=== PATIENT | female | born 1970 | race Caucasian/White ===

== ENCOUNTER 2018-02-23 18:23 | Outpatient (CLI) | payer BC, SELFPAY ==
[2018-02-23 16:45] LABS: RBC 4.96 m/cumm (4.00-5.20); White Blood Cell Count 3.87 k/cumm (4.4-10.8)
[2018-02-23 16:46] LABS: HCT 39.7 % (36.0-46.0); Mean Corpuscular Hemoglobin 26.2 pg (27.0-33.0)
[2018-02-23 16:47] LABS: Abs Immature Grans 0.01 k/cumm (0.0-0.09); Absolute Basophil Count 0.02 k/cumm (0.0-0.2); Absolute Eosinophil Count 0.21 k/cumm (0.0-0.7); Absolute Lymphocyte Count 1.18 k/cumm (1.2-3.4); Absolute Monocyte Count 0.24 k/cumm (0.11-0.7); Absolute Neutrophil Count 2.21 k/cumm (1.2-6.7); Basophils % 0.5; Eosinophils % 5.4; Immature Grans % 0.3; Lymphocytes % 30.5; Mean Corp. HGB Concentration 32.7 g/dL (32.0-36.0); Monocytes % 6.2; Neutrophils % 57.1; Platelet Count 243 x1000/uL (130-400); RBC Distribution Width 13.9 % (11.7-14.6)
[2018-02-23 16:48] LABS: Folate 15.5 ng/mL (8.6-20.0); Vitamin B12 778 pg/mL (193-986)
== END 2018-02-23 18:24 ==
PROVIDERS: PCP Emergency Medicine; Visit Provider Nurse Practitioner Family
DX: B37.0 Candidal stomatitis (principal)
CPT/HCPCS: 82607; 82746; 85025

== ENCOUNTER 2018-05-31 09:03 | Outpatient (CLI) | payer BC, SELFPAY ==
[2018-05-31 12:15] LABS: ALT 37 U/L (12-78); AST 22 U/L (15-37); Albumin 3.7 g/dL (3.4-5.0); Alkaline Phosphatase 114 U/L (46-116); Bilirubin, Direct 0.07 mg/dL (0.00-0.20); Bilirubin, Total 0.3 mg/dL (0.2-1.0); Total Protein 7.2 g/dL (6.4-8.2)
== END 2018-05-31 09:23 ==
PROVIDERS: PCP Emergency Medicine; Visit Provider Emergency Medicine
DX: K76.0 Fatty (change of) liver, not elsewhere classified (principal)
CPT/HCPCS: 36415; 80076

== ENCOUNTER 2019-06-13 07:00 | Outpatient (CLI) | payer BC, SELFPAY ==
[2019-06-13 11:35] LABS: Abs Immature Grans 0.03 k/cumm (0.0-0.09); Absolute Basophil Count 0.04 k/cumm (0.0-0.2); Absolute Eosinophil Count 0.15 k/cumm (0.0-0.7); Absolute Lymphocyte Count 1.49 k/cumm (1.2-3.4); Absolute Monocyte Count 0.43 k/cumm (0.11-0.7); Absolute Neutrophil Count 7.13 k/cumm (1.2-6.7); Basophils % 0.4; Eosinophils % 1.6; HCT 39.9 % (36.0-46.0); HGB 13.1 g/dL (12.0-15.5); Immature Grans % 0.3; Lymphocytes % 16.1; Mean Corp. HGB Concentration 32.8 g/dL (32.0-36.0); Mean Corpuscular Hemoglobin 25.8 pg (27.0-33.0); Mean Corpuscular Volume 78.5 fL (80-95); Mean Platelet Volume 9.4 fL (8.0-11.0); Monocytes % 4.6; Platelet Count 357 x1000/uL (130-400); RBC 5.08 m/cumm (4.00-5.20); RBC Distribution Width 14.4 % (11.7-14.6); White Blood Cell Count 9.27 k/cumm (4.4-10.8)
[2019-06-13 11:46] LABS: ALT 23 U/L (14-59); AST 17 U/L (15-37); Albumin 3.8 g/dL (3.4-5.0); Alkaline Phosphatase 128 U/L (46-116); Anion Gap 10.6 mmol/L (3-11); BUN 11 mg/dL (7-18); Bilirubin, Total 0.2 mg/dL (0.2-1.0); C-Reactive Protein 2.41 mg/dL (0.0-0.3); CO2 29.4 mmol/L (21.0-32.0); Calcium 9.4 mg/dL (8.5-10.1); Chloride 102 mmol/L (98-107); Creatine Kinase 74 U/L (26-192); Glucose 80 mg/dL (74-106); Potassium 4.1 mmol/L (3.5-5.1); Sodium 142 mmol/L (136-145); TSH 2.11 uIU/mL (0.36-3.74); Total Protein 7.6 g/dL (6.4-8.2)
[2019-06-13 12:09] LABS: ESR 56 mm/hr (0-20)
[2019-06-23 09:48] LABS: Lyme Ab w Rflx to Lyme Confirm Positive (Negative)
[2019-06-23 10:04] LABS: IgG Immunoblot Negative (Negative); IgM Immunoblot Negative (Negative)
== END 2019-06-13 07:20 ==
PROVIDERS: PCP Emergency Medicine; Visit Provider Emergency Medicine
DX: E03.9 Hypothyroidism, unspecified (principal); R53.83 Other fatigue; M25.50 Pain in unspecified joint
CPT/HCPCS: 36415; 80053; 82550; 85652; 86617; 84443; 85025; 86140; 86618

== ENCOUNTER 2019-06-21 04:26 | Outpatient (CLI) | payer BC, SELFPAY ==
[2019-06-21 09:48] LABS: Abs Immature Grans 0.01 k/cumm (0.0-0.09); Absolute Basophil Count 0.04 k/cumm (0.0-0.2); Absolute Eosinophil Count 0.19 k/cumm (0.0-0.7); Absolute Lymphocyte Count 1.73 k/cumm (1.2-3.4); Absolute Monocyte Count 0.46 k/cumm (0.11-0.7); Absolute Neutrophil Count 4.87 k/cumm (1.2-6.7); Basophils % 0.5; Eosinophils % 2.6; HCT 39.3 % (36.0-46.0); HGB 12.8 g/dL (12.0-15.5); Immature Grans % 0.1; Lymphocytes % 23.7; Mean Corp. HGB Concentration 32.6 g/dL (32.0-36.0); Mean Corpuscular Hemoglobin 25.3 pg (27.0-33.0); Mean Corpuscular Volume 77.8 fL (80-95); Mean Platelet Volume 9.3 fL (8.0-11.0); Monocytes % 6.3; Neutrophils % 66.8; Platelet Count 344 x1000/uL (130-400); RBC 5.05 m/cumm (4.00-5.20); RBC Distribution Width 14.8 % (11.7-14.6)
[2019-06-21 10:21] LABS: ALT 63 U/L (14-59); AST 38 U/L (15-37); Albumin 3.6 g/dL (3.4-5.0); Alkaline Phosphatase 145 U/L (46-116); Anion Gap 10.8 mmol/L (3-11); BUN 15 mg/dL (7-18); Bilirubin, Total 0.3 mg/dL (0.2-1.0); CO2 28.2 mmol/L (21.0-32.0); CREATININE 0.73 mg/dL (0.55-1.02); Calcium 9.3 mg/dL (8.5-10.1); Chloride 103 mmol/L (98-107); GGT 77 U/L (5-55); Glucose 84 mg/dL (74-106); Potassium 4.2 mmol/L (3.5-5.1); Sodium 142 mmol/L (136-145); Total Protein 7.4 g/dL (6.4-8.2)
[2019-06-21 10:32] LABS: C-Reactive Protein 2.34 mg/dL (0.0-0.3)
[2019-06-21 11:18] LABS: ESR 50 mm/hr (0-20)
[2019-06-23 09:58] LABS: Cyclic Citrullinated Peptide <2.5 U/mL (<5.0)
[2019-06-23 12:04] LABS: ANA Interpretation Negative (Negative)
[2019-06-23 13:35] LABS: Lyme Ab w Rflx to Lyme Confirm Positive (Negative)
[2019-06-27 15:24] LABS: IgG Immunoblot Negative (Negative); IgM Immunoblot Negative (Negative)
== END 2019-06-21 04:46 ==
PROVIDERS: PCP Emergency Medicine; Visit Provider Emergency Medicine
DX: M25.50 Pain in unspecified joint (principal); R53.83 Other fatigue; E03.9 Hypothyroidism, unspecified; M19.90 Unspecified osteoarthritis, unspecified site
CPT/HCPCS: 36415; 80053; 85652; 86200; 86617; 82977; 85025; 86038; 86140; 86431; 86618

== ENCOUNTER 2019-07-05 00:44 | Outpatient (CLI) | payer BC, SELFPAY ==
[2019-07-05 10:34] LABS: Iron 59 ug/dL (50-170); Total Iron Binding Capacity 303 ug/dL (250-450); Transferrin Sat 19 % (15-50)
[2019-07-05 10:50] LABS: Ferritin 63 ng/mL (8-252)
[2019-07-05 11:52] LABS: ESR 46 mm/hr (0-20)
[2019-07-07 12:39] LABS: Hepatitis A Antibody IgM Negative (Negative); Hepatitis B Core Antibody Negative (Negative); Hepatitis B surface Ag Negative (Negative); Hepatitis C Ab w Rflx HCV PCR Negative (Negative)
[2019-07-07 14:46] LABS: Albumin 56.4 % (55.8-66.1); Total Protein 6.7 g/dL (6.3-8.2)
[2019-07-08 23:08] LABS: Anaplasma phagocytophilum Negative (Negative); B. miyamotoi PCR Negative (Negative); Babesia divergens/MO-1 Negative (Negative); Babesia duncani Negative (Negative); Babesia microti Negative (Negative); Ehrlichia chaffeensis Negative (Negative); Ehrlichia ewingii/canis Negative (Negative); Ehrlichia muris eauclairensis Negative (Negative)
== END 2019-07-05 01:04 ==
PROVIDERS: PCP Emergency Medicine; Visit Provider Emergency Medicine
DX: D64.9 Anemia, unspecified (principal); K75.9 Inflammatory liver disease, unspecified; R07.1 Chest pain on breathing; Z11.59 Encounter for screening for other viral diseases
CPT/HCPCS: 36415; 85652; 86704; 86709; 86803; 87340; 87798; 82728; 83540; 83550; 84165; 86140

== ENCOUNTER 2019-07-14 00:51 | Outpatient (CLI) | payer BC, SELFPAY ==
--- NOTE | 2019-07-14 07:28 | DI.US_ITS ---
EXAM: US ABDOMEN CLINICAL HISTORY: hepatitis,K75.9 TECHNIQUE: Ultrasound performed using standard protocol. COMPARISON: ABD PELVIS TRANSVAG from 01/04/2015 FINDINGS: Visualized liver parenchyma is normal in appearance. Pancreas appears intact as visualized. There i s no evidence of cholelithiasis although there do appear to be few small gallbladder polyps. No gall bladder wall thickening or pericholecystic fluid collection seen. Spleen is unremarkable in appearan ce. No biliary dilatation. The kidneys are unremarkable in appearance. Abdominal aorta and IVC are of normal diameter. IMPRESSION: Negative abdominal ultrasound. Incidental gallbladder polyps.
== END 2019-07-14 01:11 ==
PROVIDERS: PCP Emergency Medicine; Visit Provider Emergency Medicine
DX: K75.9 Inflammatory liver disease, unspecified (principal); K82.4 Cholesterolosis of gallbladder
CPT/HCPCS: 76700

== ENCOUNTER 2019-08-31 03:20 | Outpatient (CLI) | payer BC, SELFPAY ==
[2019-08-31 10:50] LABS: Abs Immature Grans 0.02 k/cumm (0.0-0.09); Absolute Basophil Count 0.05 k/cumm (0.0-0.2); Absolute Eosinophil Count 0.18 k/cumm (0.0-0.7); Absolute Lymphocyte Count 1.55 k/cumm (1.2-3.4); Absolute Monocyte Count 0.35 k/cumm (0.11-0.7); Absolute Neutrophil Count 3.93 k/cumm (1.2-6.7); Basophils % 0.8; HCT 40.2 % (36.0-46.0); HGB 13.3 g/dL (12.0-15.5); Immature Grans % 0.3 %; Lymphocytes % 25.5; Mean Corp. HGB Concentration 33.1 g/dL (32.0-36.0); Mean Corpuscular Hemoglobin 25.7 pg (27.0-33.0); Mean Corpuscular Volume 77.8 fL (80-95); Mean Platelet Volume 9.3 fL (8.0-11.0); Monocytes % 5.8; Neutrophils % 64.6; Platelet Count 346 x1000/uL (130-400); RBC 5.17 m/cumm (4.00-5.20); RBC Distribution Width 15.1 % (11.7-14.6); White Blood Cell Count 6.08 k/cumm (4.4-10.8)
[2019-08-31 11:48] LABS: ALT 48 U/L (14-59); AST 22 U/L (15-37); Albumin 3.7 g/dL (3.4-5.0); Alkaline Phosphatase 157 U/L (46-116); Anion Gap 10.7 mmol/L (3-11); BUN 14 mg/dL (7-18); Bilirubin, Total 0.3 mg/dL (0.2-1.0); C-Reactive Protein 1.61 mg/dL (0.0-0.3); CO2 26.3 mmol/L (21.0-32.0); CREATININE 0.78 mg/dL (0.55-1.02); Chloride 102 mmol/L (98-107); Glucose 105 mg/dL (74-106); Sodium 139 mmol/L (136-145); Total Protein 7.3 g/dL (6.4-8.2)
[2019-08-31 12:21] LABS: ESR 40 mm/hr (0-20)
== END 2019-08-31 03:40 ==
PROVIDERS: PCP Emergency Medicine; Visit Provider Internal Medicine
DX: M12.9 Arthropathy, unspecified (principal); R79.82 Elevated C-reactive protein (CRP)
CPT/HCPCS: 36415; 80053; 85652; 85025; 86140

== ENCOUNTER 2019-11-27 04:30 | Outpatient (CLI) | payer BC, SELFPAY ==
[2019-11-27 17:08] LABS: Abs Immature Grans 0.02 k/cumm (0.0-0.09); Absolute Basophil Count 0.04 k/cumm (0.0-0.2); Absolute Eosinophil Count 0.15 k/cumm (0.0-0.7); Absolute Lymphocyte Count 2.02 k/cumm (1.2-3.4); Basophils % 0.6; Eosinophils % 2.2; HCT 36.7 % (36.0-46.0); HGB 12.1 g/dL (12.0-15.5); Immature Grans % 0.3 %; Lymphocytes % 29.6; Mean Corpuscular Hemoglobin 26.2 pg (27.0-33.0); Mean Corpuscular Volume 79.4 fL (80-95); Mean Platelet Volume 9.6 fL (8.0-11.0); Monocytes % 5.9; Neutrophils % 61.4; Platelet Count 334 x1000/uL (130-400); RBC 4.62 m/cumm (4.00-5.20); White Blood Cell Count 6.83 k/cumm (4.4-10.8)
[2019-11-27 17:27] LABS: ALT 38 U/L (14-59); AST 24 U/L (15-37); Albumin 3.7 g/dL (3.4-5.0); Alkaline Phosphatase 133 U/L (46-116); Anion Gap 5.9 mmol/L (3-11); BUN 18 mg/dL (7-18); Bilirubin, Total 0.2 mg/dL (0.2-1.0); C-Reactive Protein 1.18 mg/dL (0.0-0.3); CO2 29.1 mmol/L (21.0-32.0); Chloride 102 mmol/L (98-107); Glucose 90 mg/dL (74-106); Potassium 4.3 mmol/L (3.5-5.1); Sodium 137 mmol/L (136-145); Total Protein 7.3 g/dL (6.4-8.2)
[2019-11-27 18:01] LABS: ESR 43 mm/hr (0-20)
== END 2019-11-27 04:50 ==
PROVIDERS: PCP Emergency Medicine; Visit Provider Internal Medicine
DX: R70.0 Elevated erythrocyte sedimentation rate (principal); M12.9 Arthropathy, unspecified; R79.82 Elevated C-reactive protein (CRP)
CPT/HCPCS: 36415; 80053; 85652; 85025; 86140

== ENCOUNTER 2020-03-02 04:52 | Outpatient (CLI) | payer BC, SELFPAY ==
[2020-03-02 16:40] LABS: Abs Immature Grans 0.14 10^3/uL (0.0-0.06); Absolute Basophil Count 0.05 10^3/uL (0.0-0.2); Absolute Eosinophil Count 0.09 10^3/uL (0.0-0.7); Absolute Lymphocyte Count 3.68 10^3/uL (1.2-3.4); Absolute Monocyte Count 0.81 10^3/uL (0.1-0.8); Basophils % 0.4; Eosinophils % 0.8; HGB 11.9 g/dL (11.2-15.7); Immature Grans % 1.2; Lymphocytes % 32.1; MCH 26.6 pg (27.0-33.0); MCHC 32.2 % (32.0-36.0); MCV 82.6 fL (80-95); MPV 9.3 fL (8.0-11.0); Monocytes % 7.1; Neutrophils % 58.4; Nucleated RBC 0 %; Platelet Count 328 10^3/uL (130-400); RBC 4.48 10^6/uL (3.93-5.22); RDW 14.6 % (11.7-14.6); RDW-SD 43.1 fL; WBC 11.47 10^3/uL (4.4-10.8)
[2020-03-02 17:25] LABS: ALT 62 U/L (14-59); AST 16 U/L (15-37); Albumin 3.6 g/dL (3.4-5.0); Alkaline Phosphatase 131 U/L (46-116); Anion Gap 8.7 mmol/L (3-11); BUN 18 mg/dL (7-18); Bilirubin, Total 0.2 mg/dL (0.2-1.0); CO2 28.3 mmol/L (21.0-32.0); CREATININE 0.99 mg/dL (0.55-1.02); Calcium 9.1 mg/dL (8.5-10.1); Chloride 100 mmol/L (98-107); Estimated GFR 59.62 (mL/min/1.73m2); Glucose 89 mg/dL (74-106); Potassium 3.7 mmol/L (3.5-5.1); Sodium 137 mmol/L (136-145); Total Protein 6.9 g/dL (6.4-8.2)
[2020-03-02 17:52] LABS: ESR 36 mm/hr (0-20)
== END 2020-03-02 05:12 ==
PROVIDERS: PCP Emergency Medicine; Visit Provider Internal Medicine
DX: R79.82 Elevated C-reactive protein (CRP) (principal); R70.0 Elevated erythrocyte sedimentation rate; M12.9 Arthropathy, unspecified
CPT/HCPCS: 36415; 80053; 85652; 85025; 86140

== ENCOUNTER 2020-03-09 19:23 | Emergency (ER) | payer BC, SELFPAY ==
--- NOTE | 2020-03-09 19:15 | RT.EKG_ITS ---
APPROVED REPORT Exam: Resting ECG Patient Location: E HR:110 bpm ECG Measurements Heart Rate 110 AXIS WI 162 P 35 QRSd 89 QRS -15 QT 311 T 43 QTc 422 Conclusion Sinus tachycardia...rate 110 Probable LVH with secondary repol abnrm. q waves i,aVL
[2020-03-09 19:28] VITALS: BP 151/85; PULSE 124; RESP 16; TEMP 36.4; O2SAT 100
--- NOTE | 2020-03-09 19:30 | DI.RAD_ITS ---
EXAM: XR CHEST 2V PA LATERAL CLINICAL HISTORY: CP TECHNIQUE: 2D digital imaging was performed. COMPARISON: No exams were available for comparison FINDINGS: The heart is not enlarged. The lungs are clear and well expanded. No pleural effusion seen. Mediastin al contours appear intact. IMPRESSION: Normal chest RADIATION DOSE DELIVERED: Total DLP
[2020-03-09 19:35] VITALS: RESP 16
--- NOTE | 2020-03-09 19:37 | W.ED.GENAD ---
Discharge Plan Disposition Patient Disposition: HOME Condition: Good Discharge Details Clinical Impression: Heart palpitations, Tachycardia, Tingling Primary Care Provider: Domingo Vila ED Provider: Marie Mejia Home Meds and New Rx's Prescriptions: Continued triamcinolone acetonide 0.1 % cream 1 applic Topical DAILY Qty: 3 RF: 4 leucovorin calcium 5 mg tablet 5 mg PO .Saturdays RF: 0 methotrexate (PF) 30 mg/0.6 mL auto-injector 80 mg SC QWEEK RF: 0 omeprazole 20 mg capsule,delayed release(DR/EC) 20 mg PO BID Qty: 180 RF: 3 sertraline [Zoloft] 50 mg tablet 50 mg PO QAM Qty: 90 RF: 4 amitriptyline 25 mg tablet 50 mg PO HS Qty: 180 RF: 3 famotidine 20 mg tablet 20 mg PO BID Qty: 180 RF: 2 prednisone 5 mg Tablet PO DAILY RF: 0 Discharge Instructions Instructions: Heart Palpitations (ED) Additional Instructions: Encourage water intake. I have requested you be set up with a Holter monitor. You should hear from respiratory therapy tomorrow to schedule having this placed. I would also like for you to follow-up with your primary care for reevaluation. You may benefit from stress testing based on family history and risk factors. Please discuss this further with your primary care once your current RA flare has subsided. If you develop fever/chills, chest difficulty breathing, shortness of breath or the new/worsening symptom please seek care urgently once again. Referrals: Domingo Vila, [Primary Care Provider] - Medical Decision Making Patient is a pleasant 49-year-old female with past medical history significant for rheumatoid arthritis, hypertension, hypothyroidism, fibromyalgia. She reports that starting yesterday, she was having intermittent palpitations. She has not noted these to be exertionally based her any exacerbating factor. She denies any chest pain. States that today, while at work, she began having some tingling along the lateral aspect of her arm. She states that this too has been intermittent without exacerbating factor. She denies any back pain. No nausea or vomiting. No recent travel. Denies any cough. Denies any shortness of breath. States that she has had palpitations like this historically. She is typically tachycardic with a heart rate around 100 bpm report. States that she was recently started on a prednisone taper for an RA flare. On exam, patient appears nontoxic. Patient appears dehydrated. He is noted to be tachycardic with heart rate in the 120s. Cardiac exam is otherwise benign. Lungs are clear, abdomen benign. EKG was reviewed by Dr. Alfaro. NSR, rate 110. Q waves noted in 1 aVL. These are less than 25% of the QRS height. Probable LVH CXR reviewed by radiologist: FINDINGS: Lungs: Clear lungs. Pleural space: No pneumothorax. No sizable pleural effusion. Heart/Mediastinum: No cardiomegaly. Bones/joints: Unremarkable. IMPRESSION: Clear lungs. Labs reviewed. Patient has leukocytosis with white count 14.79, she does not have any evidence to suggest an infection on clinical exam, this is likely associated with her prednisone taper. Coags are normal. Potassium slightly low at 3.3, will replenish this orally. Electrolytes otherwise within normal limits. Initial troponin less than 0.05. Discussed these findings with the patient at length. She is been asymptomatic since being here. However, as she did have a progression of symptoms this afternoon, I do feel that repeat troponin would be appropriate. Patient is heart rate has been downtrending since being here and has been staying in the 100 range which is baseline for the patient per her report. Patient reports that she is never been seen by cardiology. With her chronic cardiac, palpitations as well as past family history significant for ischemic events that early 50s, I do feel a follow-up with cardiology would be appropriate. As for the patient would likely benefit from Holter monitor given the palpitations. This patient is currently having an RA flare, I feel that getting through this prior to have any type of stress testing done would be appropriate as I worry that she would not be able to tolerate this with the pain in her feet. If her repeat troponin remains negative, will refer for Holter monitor and have patient follow-up closely with primary care who can arrange for further evaluation by cardiology as patient is able to tolerate. Repeat troponin remains less than 0.05. Repeat EKG was reviewed with Dr. Kim. Again, patient is in sinus rhythm with a rate of 103. He advised that this does meet LVH criteria but does not note any ischemic changes.. Discussed this findings again with the patient. She was given strict return precautions. Referral for Holter monitor has been placed. She will contact her primary care tomorrow to schedule follow-up appointment. All of her questions and concerns were addressed and she is in agreement this plan. [facility] General Mode of arrival: ambulatory. Date/Time Provider Initiated Documentation: 03/09/20 19:23. Limitations to Documentation: no limitations. Information obtained by: patient and RN notes reviewed. History of Present Illness 49 year old F presents to the emergency department with the chief complaint of palpitations, left arm tingling, described as moderate, Quality is described as other (denies any pain), and is localized to the chest (location of palpitations), left and upper extremity (tingling). Patient extremity. Patient started experiencing this hour(s) and it has been intermittent. No relieving factors improve symptom(s), No exacerbating factors reported . Patient notes denies chest pain, cough, fever/chills, loss of appetite, nausea/vomiting, shortness of breath and weakness. Patient did receive the following treatments prior to arrival, none Related Data Home Medications Medication Instructions Recorded Confirmed triamcinolone acetonide 0.1 % 1 applic TOPICAL DAILY #3 gm 05/31/18 03/09/20 topical cream omeprazole 20 mg capsule,delayed 20 mg PO BID #180 tab-cap 06/20/19 03/09/20 release sertraline 50 mg tablet 50 mg PO QAM #90 tab 10/24/19 03/09/20 leucovorin calcium 5 mg tablet 5 mg PO .Saturdays tab 01/09/20 03/09/20 methotrexate (PF) 30 mg/0.6 mL 80 mg SC QWEEK ml 01/09/20 03/09/20 subcutaneous auto-injector amitriptyline 25 mg tablet 50 mg PO HS #180 tab-cap 02/13/20 03/09/20 famotidine 20 mg tablet 20 mg PO BID #180 tab 02/13/20 03/09/20 prednisone mg PO DAILY 03/09/20 Previous Rx's Medication Instructions Recorded triamcinolone acetonide 0.1 % 1 applic TOPICAL DAILY #3 gm 05/31/18 topical cream omeprazole 20 mg capsule,delayed 20 mg PO BID #180 tab-cap 06/20/19 release sertraline 50 mg tablet 50 mg PO QAM #90 tab 10/24/19 amitriptyline 25 mg tablet 50 mg PO HS #180 tab-cap 02/13/20 famotidine 20 mg tablet 20 mg PO BID #180 tab 02/13/20 Allergies Allergy/AdvReac Type Severity Reaction Status Date / Time metronidazole Allergy Severe Verified 07/02/19 14:53 ciprofloxacin [From Cipro] Allergy Intermediate HIVES Verified 07/02/19 14:53 ciprofloxacin HCl Allergy Intermediate HIVES Verified 07/02/19 14:53 [From Cipro] diclofenac Allergy Intermediate NUMBNESS Verified 07/02/19 14:53 OF FEET glucosamine Allergy Intermediate ITCHING Verified 07/02/19 14:53 nitrofurazone Allergy Mild HIVES Verified 07/02/19 14:53 Penicillins Allergy Unknown HIVES Verified 07/02/19 14:53 Sulfa (Sulfonamide Allergy Unknown SWELLING; Verified 07/02/19 14:53 Antibiotics) FLUSHING ibuprofen AdvReac Severe GASTRITIS Verified 07/02/19 14:53 erythromycin base AdvReac Mild GI Verified 07/02/19 14:53 General Stated Complaint: Chest Pain KATARZYNA: 2 Review of Systems Constitutional Constitutional: Reports as per HPI, Denies chills, Denies fever(s), Denies headache(s), Denies lethargy and Denies poor appetite Eyes Eyes: Denies change in vision ENT Ears, Nose, Mouth, and Throat: Denies dizziness and Denies headache(s) Cardiovascular Cardiovascular: Reports as per HPI, Denies dyspnea and Denies dyspnea on exertion Respiratory Respiratory: Reports as per HPI, Denies chest congestion, Denies cough, Denies pain on inspiration, Denies pain with cough, Denies dyspnea, Denies dyspnea on exertion and Denies wheezing Gastrointestinal Gastrointestinal: Reports as per HPI, Denies abdominal pain, Denies diarrhea, Denies nausea and Denies vomiting Musculoskeletal Musculoskeletal: Reports as per HPI, Denies back pain and Reports tingling Integumentary/Breasts Skin/Breast: Reports as per HPI and Denies rash Neurologic Neurologic: Reports as per HPI, Denies dizziness, Denies headache(s) and Reports tingling Allergic/Immunologic Allergic/Immunologic: Denies wheezing [facility] Medical History Seronegative rheumatoid arthritis Surgical History EGD - IV Sedation 2009-[facility] [place] EGD W/BIOPSIES (MAC) (02/17/15) Dr. Magali Reich Social History Smoking/Tobacco Use Status: Never Alcohol Intake: current Alcohol Intake frequency: holidays/special occasions only Drug use: Never Substance use type: does not use Do you feel safe at home: Yes Do you feel safe in your relationship?: Yes Exam Const General: cooperative, healthy appearing, comfortable, no acute distress and well developed Nutritional Appearance: well nourished and obese Orientation: alert, awake and oriented x3 HENMT Head: normal to inspection Ears: hearing grossly normal bilaterally Mouth: mucous membranes dry (appears dry) Chest Chest: normal inspection of the chest, normal palpation of entire chest wall and no crepitus Resp Effort & Inspection: normal respiratory effort, able to speak in complete sentences and no respiratory distress Auscultation: clear to auscultation bilaterally, no rales, no rhonchi and no wheezes Cardio Rate: tachycardic Rhythm: regular rhythm Heart Sounds: S1 normal and S2 normal GI Inspection: normal to inspection, no edema and non-distended Palpation: soft, no hepatosplenomegaly, not firm, no guarding, not rigid and nontender Auscultation: normal bowel sounds Back/Spine/Pelvis Back: no CVA tenderness Thoracic/Lumbar Spine: thoracic and lumbar spine normal to inspection Skin General skin exam: no rashes or lesions noted Trauma: no lacerations or abrasions Neuro General: patient alert, patient awake and patient oriented x3 Cognition: normal cognition Speech: speech normal Gait: normal gait Extrem General: normal to inspection, capillary refill normal, no pedal edema, no calf tenderness and normal gait Psych Appearance: grossly normal and well kempt Mental Status: mental status grossly normal Speech and Movement: speech and movement normal Course Vital Signs Vital signs: Vital Signs Temperature 36.4 C L 03/09/20 19:28 Pulse 124 H 03/09/20 19:28 Respiratory Rate 16 03/09/20 19:28 Blood Pressure 151/85 H 03/09/20 19:28 Pulse Oximetry 100 03/09/20 19:28 Temperature 36.4 C L 03/09/20 19:28 Temperature Source Skin 03/09/20 19:28 Pulse 124 H 03/09/20 19:28 Respiratory Rate 16 03/09/20 19:35 Respiratory Effort 03/09/20 19:35 Respiratory Depth Normal 03/09/20 19:35 Respiratory Pattern Normal 03/09/20 19:35 Blood Pressure 151/85 H 03/09/20 19:28 Blood Pressure Position Sitting 03/09/20 19:28 Pulse Oximetry 100 03/09/20 19:28 Oxygen Delivery Method Room Air 03/09/20 19:28 Oxygen Flow Rate 0 03/09/20 19:28 Pain Level 4 03/09/20 19:35
--- NOTE | 2020-03-09 19:40 | NUR.NOTE ---
Pt notes heart palpitations since last night, aching left arm pain today. Mild SOB. [place] HR was fast, checked on her phone, was 115. Checked BP, 140/90's. Currently on prednisone taper for RA.
[2020-03-09] MEDS: Aspirin 81 MG CHEW 324 MG CH (19:59)
[2020-03-09] MEDS: Normal Saline 1,000 ML 125 ML IV (19:59)
[2020-03-09 20:09] LABS: Abs Immature Grans 0.23 10^3/uL (0.0-0.06); Absolute Basophil Count 0.06 10^3/uL (0.0-0.2); Absolute Lymphocyte Count 3.51 10^3/uL (1.2-3.4); Absolute Monocyte Count 0.86 10^3/uL (0.1-0.8); Absolute Neutrophil Count 10.03 10^3/uL (1.2-6.7); Basophils % 0.4; Eosinophils % 0.7; HCT 37.9 % (36.0-46.0); HGB 12.3 g/dL (11.2-15.7); Immature Grans % 1.6; Lymphocytes % 23.7; MCH 26.7 pg (27.0-33.0); MCHC 32.5 % (32.0-36.0); MCV 82.2 fL (80-95); MPV 9.1 fL (8.0-11.0); Monocytes % 5.8; Neutrophils % 67.8; Nucleated RBC 0 %; Platelet Count 307 10^3/uL (130-400); RBC 4.61 10^6/uL (3.93-5.22); RDW 14.8 % (11.7-14.6); RDW-SD 43.8 fL; WBC 14.79 10^3/uL (4.4-10.8)
[2020-03-09] MEDS: Lactated Ringers 1,000 ML 1000 ML IV (20:19)
[2020-03-09 20:27] LABS: ALT 24 U/L (14-59); AST 10 U/L (15-37); Albumin 3.4 g/dL (3.4-5.0); Alkaline Phosphatase 112 U/L (46-116); Anion Gap 6.2 mmol/L (3-11); BUN 15 mg/dL (7-18); Bilirubin, Total 0.2 mg/dL (0.2-1.0); CO2 29.8 mmol/L (21.0-32.0); CREATININE 0.94 mg/dL (0.55-1.02); Calcium 8.8 mg/dL (8.5-10.1); Chloride 102 mmol/L (98-107); Glucose 109 mg/dL (74-106); Magnesium 1.9 mg/dL (1.8-2.4); Potassium 3.3 mmol/L (3.5-5.1); Sodium 138 mmol/L (136-145); Total Protein 7.1 g/dL (6.4-8.2)
[2020-03-09 20:31] LABS: Troponin I < 0.05 ng/mL (<0.06)
--- NOTE | 2020-03-09 20:35 | DI.VRAD_ITS ---
PROCEDURE INFORMATION: Exam: XR Chest, 2 Views Exam date and time: 03/09/2020 8:26 PM Age: 49 years old Clinical indication: Patient HX: Chest pain radiating into left arm with arm tingling TECHNIQUE: Imaging protocol: XR of the chest Views: 2 views. COMPARISON: No relevant prior studies available. FINDINGS: Lungs: Clear lungs. Pleural space: No pneumothorax. No sizable pleural effusion. Heart/Mediastinum: No cardiomegaly. Bones/joints: Unremarkable. IMPRESSION: Clear lungs. Dictated and Authenticated by: Elliott Goldberg MD. Ordering:ASIYA Salazar MD
[2020-03-09 20:42] LABS: Prothrombin Time 10.1 sec (9.3-11.0)
[2020-03-09 21:29] VITALS: BP 104/56; PULSE 100; RESP 16; O2SAT 99
--- NOTE | 2020-03-09 22:30 | RT.EKG_ITS ---
APPROVED REPORT Exam: Resting ECG Patient Location: E HR:103 bpm ECG Measurements Heart Rate 103 AXIS ID 173 P 39 QRSd 87 QRS -14 QT 345 T 14 QTc 451 Conclusion Sinus tachycardia...rate> 99 Low voltage, precordial leads...precordial leads <1.0mV Probable LVH with secondary repol abnrm...multiple LVH criteria
[2020-03-09 22:49] VITALS: BP 119/67; PULSE 102; RESP 16; O2SAT 99
[2020-03-09 23:07] LABS: Troponin I < 0.05 ng/mL (<0.06)
[2020-03-09 23:48] LABS: TSH (W/Ref FT4) 3.09 uIU/mL (0.36-3.74)
== END 2020-03-09 23:20 | disposition home or self-care (01) ==
PROVIDERS: Emergency Provider Physician Assistant; PCP Emergency Medicine
DX: R00.2 Palpitations (principal); R00.0 Tachycardia, unspecified; R20.2 Paresthesia of skin; E87.6 Hypokalemia; E86.0 Dehydration; I10 Essential (primary) hypertension; E03.9 Hypothyroidism, unspecified; Z82.49 Family history of ischemic heart disease and other diseases of the circulatory system
CPT/HCPCS: 36415; 80053; 93005; 96360; 96361; 99285; 71046; 83735; 84443; 84484; 85025; 85610; 85730; 93010

== ENCOUNTER 2020-03-11 08:32 | Outpatient (CLI) | payer BC, SELFPAY ==
--- NOTE | 2020-03-15 13:25 | W.HOLTRPT ---
Date of service: 03/15/20 Time of Service: 13:25 Holter Monitor Report Referring Provider:: Julito Indications:: [place] Holter Monitor Note: There is a 48-hour Holter monitor ordered for indication palpitations. ?This patient was normal sinus rhythm for the majority recording with an average heart rate of 93 bpm. ?The patient had 0 episodes of SVT and rare PACs. ?The patient had 0 episodes of ventricular tachycardia and 2 single ventricular ectopic beats. ?There are no episodes of atrial fibrillation, no pauses grade 3 seconds no evidence of high degree heart block.
== END 2020-03-11 08:52 ==
PROVIDERS: PCP Emergency Medicine; Visit Provider Physician Assistant
DX: R00.2 Palpitations (principal)
CPT/HCPCS: 93225

== ENCOUNTER 2020-03-15 08:58 | Outpatient (CLI) | payer BC, SELFPAY | END 2020-03-15 09:18 | PROVIDERS: PCP Emergency Medicine; Visit Provider Physician Assistant | DX: R00.2 Palpitations (principal) | CPT/HCPCS: 93226 ==

== ENCOUNTER 2020-05-05 04:34 | Outpatient (CLI) | payer BC, SELFPAY ==
[2020-05-05 10:39] LABS: Abs Immature Grans 0.01 10^3/uL (0.0-0.06); Absolute Basophil Count 0.06 10^3/uL (0.0-0.2); Absolute Eosinophil Count 0.19 10^3/uL (0.0-0.7); Absolute Lymphocyte Count 1.44 10^3/uL (1.2-3.4); Absolute Monocyte Count 0.35 10^3/uL (0.1-0.8); Absolute Neutrophil Count 2.33 10^3/uL (1.2-6.7); Basophils % 1.4; Eosinophils % 4.3; HCT 36.8 % (36.0-46.0); HGB 12.1 g/dL (11.2-15.7); Immature Grans % 0.2; Lymphocytes % 32.9; MCH 26.5 pg (27.0-33.0); MCHC 32.9 % (32.0-36.0); MCV 80.7 fL (80-95); MPV 9.9 fL (8.0-11.0); Neutrophils % 53.2; Nucleated RBC 0 %; Platelet Count 293 10^3/uL (130-400); RBC 4.56 10^6/uL (3.93-5.22); RDW 14.3 % (11.7-14.6); RDW-SD 41.7 fL; WBC 4.38 10^3/uL (4.4-10.8)
[2020-05-05 11:36] LABS: ALT 25 U/L (14-59); AST 19 U/L (15-37); Albumin 3.7 g/dL (3.4-5.0); Alkaline Phosphatase 124 U/L (46-116); Anion Gap 6.1 mmol/L (3-11); BUN 14 mg/dL (7-18); Bilirubin, Total 0.3 mg/dL (0.2-1.0); CO2 28.9 mmol/L (21.0-32.0); CREATININE 0.69 mg/dL (0.55-1.02); Chloride 104 mmol/L (98-107); Glucose 68 mg/dL (74-106); Potassium 4.4 mmol/L (3.5-5.1); Sodium 139 mmol/L (136-145)
[2020-05-05 11:41] LABS: ESR 35 mm/hr (0-20)
== END 2020-05-05 04:54 ==
PROVIDERS: PCP Emergency Medicine; Visit Provider Internal Medicine
DX: R79.82 Elevated C-reactive protein (CRP); R70.0 Elevated erythrocyte sedimentation rate; M12.89 Other specific arthropathies, not elsewhere classified, multiple sites; M06.9 Rheumatoid arthritis, unspecified
CPT/HCPCS: 36415; 80053; 85652; 85025; 86140

== ENCOUNTER 2020-08-09 01:52 | Outpatient (CLI) | payer BC, SELFPAY ==
[2020-08-09 11:17] LABS: Abs Immature Grans 0.04 10^3/uL (0.0-0.06); Absolute Basophil Count 0.06 10^3/uL (0.0-0.2); Absolute Eosinophil Count 0.22 10^3/uL (0.0-0.7); Absolute Lymphocyte Count 1.97 10^3/uL (1.2-3.4); Absolute Neutrophil Count 3.88 10^3/uL (1.2-6.7); Basophils % 0.9; Eosinophils % 3.2; HCT 38.4 % (36.0-46.0); HGB 12.3 g/dL (11.2-15.7); Immature Grans % 0.6; Lymphocytes % 29.1; MCH 26.3 pg (27.0-33.0); MCV 82.1 fL (80-95); Monocytes % 8.9; Neutrophils % 57.3; Nucleated RBC 0 %; Platelet Count 284 10^3/uL (130-400); RBC 4.68 10^6/uL (3.93-5.22); RDW 14.2 % (11.7-14.6); RDW-SD 41.7 fL; WBC 6.77 10^3/uL (4.4-10.8)
[2020-08-09 12:25] LABS: ALT 44 U/L (14-59); AST 25 U/L (15-37); Albumin 3.5 g/dL (3.4-5.0); Alkaline Phosphatase 148 U/L (46-116); Anion Gap 6.5 mmol/L (3-11); BUN 13 mg/dL (7-18); Bilirubin, Total 0.2 mg/dL (0.2-1.0); C-Reactive Protein 1.81 mg/dL (0.0-0.3); CO2 29.5 mmol/L (21.0-32.0); CREATININE 0.6 mg/dL (0.55-1.02); Calcium 8.9 mg/dL (8.5-10.1); Chloride 101 mmol/L (98-107); Glucose 74 mg/dL (74-106); Potassium 3.9 mmol/L (3.5-5.1); Sodium 137 mmol/L (136-145); Total Protein 7.1 g/dL (6.4-8.2)
[2020-08-09 15:54] LABS: ESR 51 mm/hr (<or=30)
== END 2020-08-09 01:53 | disposition home or self-care (01) ==
LOC: LBO 01:52
PROVIDERS: PCP Emergency Medicine; Visit Provider Internal Medicine
DX: R79.82 Elevated C-reactive protein (CRP) (principal); R70.0 Elevated erythrocyte sedimentation rate; M12.9 Arthropathy, unspecified; M06.9 Rheumatoid arthritis, unspecified
CPT/HCPCS: 36415; 80053; 85652; 85025; 86140

== ENCOUNTER 2020-11-01 03:26 | Outpatient (CLI) | payer BC, SELFPAY ==
[2020-11-01 12:11] LABS: Abs Immature Grans 0.02 10^3/uL (0.0-0.06); Absolute Basophil Count 0.05 10^3/uL (0.0-0.2); Absolute Eosinophil Count 0.18 10^3/uL (0.0-0.7); Absolute Lymphocyte Count 1.56 10^3/uL (1.2-3.4); Absolute Neutrophil Count 3.32 10^3/uL (1.2-6.7); Basophils % 0.9; Eosinophils % 3.3; HCT 37.7 % (36.0-46.0); Immature Grans % 0.4; Lymphocytes % 28.2; MCH 25.9 pg (27.0-33.0); MCHC 31.8 % (32.0-36.0); MCV 81.4 fL (80-95); MPV 9.3 fL (8.0-11.0); Monocytes % 7.2; Nucleated RBC 0 %; Platelet Count 272 10^3/uL (130-400); RBC 4.63 10^6/uL (3.93-5.22); RDW 14.5 % (11.7-14.6); RDW-SD 42.4 fL; WBC 5.53 10^3/uL (4.4-10.8)
[2020-11-01 12:12] LABS: ESR 19 mm//hr (0-20)
[2020-11-01 12:25] LABS: ALT 46 U/L (14-59); AST 22 U/L (15-37); Albumin 3.6 g/dL (3.4-5.0); Alkaline Phosphatase 142 U/L (46-116); Anion Gap 7.2 mmol/L (3-11); BUN 13 mg/dL (7-18); Bilirubin, Total 0.3 mg/dL (0.2-1.0); C-Reactive Protein 1.31 mg/dL (0.0-0.3); CO2 29.8 mmol/L (21.0-32.0); CREATININE 0.7 mg/dL (0.55-1.02); Calcium 9.2 mg/dL (8.5-10.1); Chloride 103 mmol/L (98-107); Glucose 91 mg/dL (74-106); Potassium 4.5 mmol/L (3.5-5.1); Sodium 140 mmol/L (136-145); Total Protein 7.7 g/dL (6.4-8.2)
== END 2020-11-01 03:27 | disposition home or self-care (01) ==
LOC: LBO 03:27
PROVIDERS: PCP Emergency Medicine; Visit Provider Internal Medicine
DX: M12.88 Other specific arthropathies, not elsewhere classified, other specified site (principal); R79.82 Elevated C-reactive protein (CRP); R70.0 Elevated erythrocyte sedimentation rate; M06.9 Rheumatoid arthritis, unspecified
CPT/HCPCS: 36415; 80053; 85652; 85025; 86140

== ENCOUNTER 2021-01-06 08:17 | Outpatient (CLI) | payer BC, SELFPAY ==
[2021-01-06 12:59] LABS: TSH 2.62 uIU/mL (0.36-3.74)
== END 2021-01-06 08:18 | disposition home or self-care (01) ==
LOC: LOS 08:18
PROVIDERS: PCP Emergency Medicine; Visit Provider Emergency Medicine
DX: E03.9 Hypothyroidism, unspecified (principal)
CPT/HCPCS: 36415; 84443

== ENCOUNTER 2021-02-09 02:40 | Outpatient (CLI) | payer BC, SELFPAY ==
[2021-02-09 08:38] LABS: ESR 17 mm/hr (0-20)
[2021-02-09 08:38] LABS: Abs Immature Grans 0.02 10^3/uL (0.0-0.06); Absolute Basophil Count 0.04 10^3/uL (0.0-0.2); Absolute Eosinophil Count 0.15 10^3/uL (0.0-0.7); Absolute Lymphocyte Count 1.35 10^3/uL (1.2-3.4); Absolute Monocyte Count 0.28 10^3/uL (0.1-0.8); Absolute Neutrophil Count 2.54 10^3/uL (1.2-6.7); Basophils % 0.9; Eosinophils % 3.4; HCT 36.6 % (36.0-46.0); HGB 11.8 g/dL (11.2-15.7); Immature Grans % 0.5; Lymphocytes % 30.8; MCHC 32.2 % (32.0-36.0); MCV 80.8 fL (80-95); MPV 9.4 fL (8.0-11.0); Monocytes % 6.4; Nucleated RBC 0 %; Platelet Count 269 10^3/uL (130-400); RBC 4.53 10^6/uL (3.93-5.22); RDW 14.7 % (11.7-14.6); RDW-SD 43.2 fL; WBC 4.38 10^3/uL (4.4-10.8)
[2021-02-09 09:46] LABS: Calculated LDL 143 mg/dL (<100); Cholesterol 228 mg/dL (<200); HDL Cholesterol 58 mg/dL (40-60); Triglyceride 138 mg/dL (<150)
[2021-02-09 09:51] LABS: ALT 38 U/L (14-59); AST 24 U/L (15-37); Albumin 3.7 g/dL (3.4-5.0); Alkaline Phosphatase 127 U/L (46-116); Anion Gap 7.1 mmol/L (3-11); BUN 16 mg/dL (7-18); Bilirubin, Total 0.4 mg/dL (0.2-1.0); C-Reactive Protein 1.53 mg/dL (0.0-0.3); CO2 27.9 mmol/L (21.0-32.0); CREATININE 0.7 mg/dL (0.55-1.02); Calcium 8.8 mg/dL (8.5-10.1); Chloride 105 mmol/L (98-107); Glucose 90 mg/dL (74-106); Potassium 4.5 mmol/L (3.5-5.1); Sodium 140 mmol/L (136-145); Total Protein 7.1 g/dL (6.4-8.2)
== END 2021-02-09 02:41 | disposition home or self-care (01) ==
LOC: LBO 02:40
PROVIDERS: Internal Medicine; PCP Emergency Medicine; Visit Provider Emergency Medicine
DX: Z13.220 Encounter for screening for lipoid disorders (principal); R79.82 Elevated C-reactive protein (CRP); R70.0 Elevated erythrocyte sedimentation rate; M12.9 Arthropathy, unspecified; M06.9 Rheumatoid arthritis, unspecified
CPT/HCPCS: 36415; 80053; 80061; 85652; 85025; 86140

== ENCOUNTER 2021-05-17 04:20 | Outpatient (CLI) | payer BC, SELFPAY ==
[2021-05-17 08:00] LABS: Abs Immature Grans 0.01 10^3/uL (0.0-0.06); Absolute Basophil Count 0.04 10^3/uL (0.0-0.2); Absolute Eosinophil Count 0.12 10^3/uL (0.0-0.7); Absolute Lymphocyte Count 1.45 10^3/uL (1.2-3.4); Absolute Monocyte Count 0.28 10^3/uL (0.1-0.8); Absolute Neutrophil Count 3.19 10^3/uL (1.2-6.7); Basophils % 0.8; ESR 43 mm/hr (0-20); Eosinophils % 2.4; HCT 37.7 % (36.0-46.0); HGB 12.1 g/dL (11.2-15.7); Immature Grans % 0.2; Lymphocytes % 28.5; MCHC 32.1 % (32.0-36.0); MCV 81.1 fL (80-95); MPV 9.2 fL (8.0-11.0); Monocytes % 5.5; Neutrophils % 62.6; Nucleated RBC 0 %; Platelet Count 265 10^3/uL (130-400); RBC 4.65 10^6/uL (3.93-5.22); RDW 14.7 % (11.7-14.6); WBC 5.09 10^3/uL (4.4-10.8)
[2021-05-17 08:54] LABS: ALT 29 U/L (14-59); AST 21 U/L (15-37); Albumin 3.6 g/dL (3.4-5.0); Alkaline Phosphatase 125 U/L (46-116); Anion Gap 6.6 mmol/L (3-11); BUN 14 mg/dL (7-18); Bilirubin, Total 0.4 mg/dL (0.2-1.0); C-Reactive Protein 1.89 mg/dL (0.0-0.3); CO2 28.4 mmol/L (21.0-32.0); CREATININE 0.6 mg/dL (0.55-1.02); Calcium 8.8 mg/dL (8.5-10.1); Chloride 103 mmol/L (98-107); Glucose 90 mg/dL (74-106); Potassium 4.3 mmol/L (3.5-5.1); Sodium 138 mmol/L (136-145); Total Protein 7.1 g/dL (6.4-8.2)
== END 2021-05-17 04:21 | disposition home or self-care (01) ==
LOC: LBO 04:20
PROVIDERS: PCP Emergency Medicine; Visit Provider Internal Medicine
DX: M06.9 Rheumatoid arthritis, unspecified (principal); Z79.899 Other long term (current) drug therapy
CPT/HCPCS: 36415; 80053; 85652; 85025; 86140

== ENCOUNTER 2021-08-15 02:49 | Outpatient (CLI) | payer BC, SELFPAY ==
[2021-08-15 12:24] LABS: Abs Immature Grans 0.03 10^3/uL (0.0-0.06); Absolute Basophil Count 0.05 10^3/uL (0.0-0.2); Absolute Eosinophil Count 0.19 10^3/uL (0.0-0.7); Absolute Lymphocyte Count 1.78 10^3/uL (1.2-3.4); Absolute Monocyte Count 0.34 10^3/uL (0.1-0.8); Absolute Neutrophil Count 3.03 10^3/uL (1.2-6.7); Basophils % 0.9; Eosinophils % 3.5; HCT 36.4 % (36.0-46.0); HGB 11.6 g/dL (11.2-15.7); Immature Grans % 0.6; Lymphocytes % 32.8; MCH 25.8 pg (27.0-33.0); MCHC 31.9 % (32.0-36.0); MCV 80.9 fL (80-95); MPV 9.1 fL (8.0-11.0); Monocytes % 6.3; Neutrophils % 55.9; Nucleated RBC 0 %; Platelet Count 274 10^3/uL (130-400); RDW-SD 43.8 fL; WBC 5.42 10^3/uL (4.4-10.8)
[2021-08-15 12:27] LABS: ESR 23 mm/hr (0-30)
[2021-08-15 13:42] LABS: ALT 31 U/L (14-59); AST 17 U/L (15-37); Albumin 3.7 g/dL (3.4-5.0); Alkaline Phosphatase 132 U/L (46-116); Anion Gap 6.4 mmol/L (3-11); BUN 16 mg/dL (7-18); Bilirubin, Total 0.2 mg/dL (0.2-1.0); C-Reactive Protein 1.53 mg/dL (0.0-0.3); CO2 28.6 mmol/L (21.0-32.0); CREATININE 0.7 mg/dL (0.55-1.02); Calcium 9.1 mg/dL (8.5-10.1); Chloride 103 mmol/L (98-107); Glucose 72 mg/dL (74-106); Potassium 4.5 mmol/L (3.5-5.1); Sodium 138 mmol/L (136-145); Total Protein 7.1 g/dL (6.4-8.2)
== END 2021-08-15 02:50 | disposition home or self-care (01) ==
LOC: LBO 02:49
PROVIDERS: PCP Family Medicine; Visit Provider Internal Medicine
DX: M06.9 Rheumatoid arthritis, unspecified (principal); Z79.899 Other long term (current) drug therapy
CPT/HCPCS: 36415; 80053; 85652; 85025; 86140

== ENCOUNTER 2023-08-03 15:48 | Outpatient (REF) | payer BC, SELFPAY | END 2023-08-03 15:49 | disposition home or self-care (01) | LOC: LBN 15:48 | PROVIDERS: PCP Family Medicine; Visit Provider Family Medicine | DX: N76.0 Acute vaginitis (principal) | CPT/HCPCS: 87480; 87510; 87660 ==

== ENCOUNTER 2023-09-19 16:18 | Outpatient (REF) | payer BC, SELFPAY | END 2023-09-19 16:19 | disposition home or self-care (01) | LOC: LBN 16:18 | PROVIDERS: PCP Family Medicine; Visit Provider Family Medicine | DX: N76.0 Acute vaginitis (principal); B96.89 Other specified bacterial agents as the cause of diseases classified elsewhere | CPT/HCPCS: 87480; 87510; 87660 ==

== ENCOUNTER 2024-08-15 13:30 | Outpatient (REF) | payer BC, SELFPAY ==
--- NOTE | 2024-08-15 11:00 | SKI_PTH ---
PATIENT: Nani Heck LOC: [facility] U#:[id number] AGE/SX: 54/F ROOM: RE08/15/[address]: Cailin Barker : 1970 BED: DIS: 08/15/2024 SPEC #: [id number] RECD: 08/15/24 13:35 STATUS: VALENTINA REQ #: [id number] ESTHELA: 08/15/24 11:[address]: Cailin Barker DEPT: Surgical Specimen RECD BY: Latoya Garcia Tissues: 1 - SKIN BIOPSY(SHAVE/PUNCH) Procedures: SKIN LEVEL 4 Comments: [id number]
== END 2024-08-15 13:31 | disposition home or self-care (01) ==
LOC: NCHCN 13:30
PROVIDERS: PCP Family Medicine; Visit Provider Family Medicine
DX: D18.01 Hemangioma of skin and subcutaneous tissue
CPT/HCPCS: 88305

== ENCOUNTER 2024-11-12 11:47 | Outpatient (REF) | payer BC, SELFPAY ==
--- NOTE | 2024-11-12 11:00 | SKI_PTH ---
PATIENT: Nani Heck LOC: [facility] U#:[id number] AGE/SX: 54/F ROOM: RE11/12/[address]: Cailin Barker : 1970 BED: DIS: 11/12/2024 SPEC #: [id number] RECD: 11/12/24 13:02 STATUS: [facility] SALDANA #: [id number] ESTHELA: 11/12/24 11:[address]: Cailin Barker DEPT: Surgical Specimen RECD BY: Latoya Garcia Tissues: 1 - SKIN BIOPSY(SHAVE/PUNCH) Procedures: GROSS AND MICRO LEVEL 4 Comments: [id number]
== END 2024-11-12 11:48 | disposition home or self-care (01) ==
LOC: LBN 11:47
PROVIDERS: PCP Family Medicine; Visit Provider Family Medicine
DX: D18.01 Hemangioma of skin and subcutaneous tissue (principal)
CPT/HCPCS: 88305

== ENCOUNTER 2025-03-23 04:28 | Outpatient (CLI) | payer BC, SELFPAY ==
[2025-03-23 12:32] LABS: Hemoglobin A1C 5.6 % (<5.7)
== END 2025-03-23 04:29 | disposition home or self-care (01) ==
LOC: LBO 04:28
PROVIDERS: PCP Family Medicine; Visit Provider Family Medicine
DX: K76.0 Fatty (change of) liver, not elsewhere classified (principal)
CPT/HCPCS: 36415; 83036